=== PATIENT | female | born 1940 | race Two or more races ===

== ENCOUNTER → 2020-05-23 | Outpatient (CLI) | payer OTHER | END | disposition home or self-care (01) | LOC: PPH VACUNA | PROVIDERS: ATTEND Emergency Medicine Pediatric Emergency Medicine | DX: Z23 Encounter for immunization (principal) ==

== ENCOUNTER → 2021-01-15 09:00 | Outpatient (CLI) | payer OTHER | END | disposition home or self-care (01) | LOC: PPH VACUNA 09:00 | PROVIDERS: ATTEND Emergency Medicine Pediatric Emergency Medicine | DX: Z23 Encounter for immunization (principal) ==

== ENCOUNTER 2021-09-14 10:25 | Outpatient (CLI) | payer OTHER | END 2021-09-14 11:05 | disposition home or self-care (01) | LOC: ASH CLINIC 10:25 | PROVIDERS: ATTEND Internal Medicine Gastroenterology | DX: U07.1 COVID-19 (principal) ==